=== PATIENT | female | born 1950 | race Caucasian/White ===

== ENCOUNTER 2021-10-30 08:42 | Emergency (ER) | payer MEDICARE, OTHER ==
[~2021-10-30 08:42] MED LIST: AMLODIPINE BESYL5 MG PO; BAYER CHEWABLE81 MG PO; BENZONATATE200 MG PO; COZAAR100 MG PO; DIFLUCAN 100MG100 MG PO; GABAPENTIN 100100 MG PO; GLIMEPIRIDE4 MG PO; HUMULIN R100 UNIT/1 SC; K-DUR20 MEQ PO; LASIX40 MG PO; LIPITOR 10MG TA10 MG PO; PREDNISONE 20MG20 MG PO; PROMETHAZINE-D118 ML PO; VENTOLIN (2.5 MG/3 M INH; VIBRAMYCIN100 MG PO
[2021-10-30] MEDS ORDERED: NORCO 5-325 TA1 EACH PO (11:01)
== END 2021-10-30 11:24 | disposition home or self-care (01) ==
LOC: FER 08:42
DX: M25.551 Pain in right hip (principal); I11.0 Hypertensive heart disease with heart failure; I50.9 Heart failure, unspecified; I25.10 Atherosclerotic heart disease of native coronary artery without angina pectoris; E11.9 Type 2 diabetes mellitus without complications; F17.210 Nicotine dependence, cigarettes, uncomplicated
CPT/HCPCS: 72192